=== PATIENT | female | born 1960 | race Caucasian/White ===

== ENCOUNTER 2019-01-08 14:15 | Inpatient (IN) | payer MEDICARE, MEDICAID ==
[~2019-01-08] VITALS: Ht 171.4 cm; Wt 104.3 kg
[~2019-01-08 14:15] MED LIST: CIPROFLOXACIN250 MG PO; COPAXONE20 MG/1 ML SUBQ; DOCUSATE SODIU100 MG ORAL; ESCITALOPRAM OX20 MG ORAL; HEPARIN SO5000 UNIT2 SUBQ; LEXAPRO10 MG ORAL; LEXAPRO20 MG ORAL; LIDODERM700 M1 TOPIC; MIRTAZAPINE15 MG ORAL; NORCO 5-325 TA1 EACH ORAL; PERCOCET 10-321 EACH ORAL; PERCOCET 5-3251 EACH ORAL; XANAX0.25 MG ORAL; ZOLPIDEM TARTRAT5 MG ORAL
--- NOTE | 2019-01-08 14:26 | Emergency Room Report ---
History of Present Illness General Source: Patient, EMS Present Illness HPI EMS was called by the records specialist because of increased weakness. The patient has a history of multiple sclerosis and is wheelchair bound. However the patient has increased weakness today. She denies any symptoms at this time. She does note that she is weak on the right-hand side but claims that this is long- standing. She denies headache or chest pain. There is no fever chills nausea vomiting diarrhea dysuria or trauma. Patient last admitted September 2016. D/C dx: 1. Multiple sclerosis with mild right hemiparesis, representing exacerbation of demyelinating process. 2. Status post mechanical fall with sacral fracture. 3. Depression. 4. Osteoporosis. 5. Degenerative joint disease. Allergies: Coded Allergies: No Known Allergies (Unverified , 05/02/14) Patient History Past Medical History: see triage record, old chart reviewed Social History: Denies: smoking - former Social History Narrative SNF Reviewed Nursing Documentation: PMH: Agreed; PSxH: Agreed Nursing Documentation-PMH Hx Cardiac Problems: No - multiple sclerosis Hx Cancer: No Hx Gastrointestinal Problems: No Hx Neurological Problems: Yes Hx Cerebrovascular Accident: No Hx Transient Ischemic Attacks: No Hx Dementia: No Hx Alzheimer's Disease: No Hx Parkinson's Disease: No Hx Meningitis: No Hx Encephalitis: No Hx Seizures: No Hx Epilepsy: No Hx Multiple Sclerosis: Yes Hx Cerebral Palsy: No Hx Amyotrophic Lat Sclerosis: Yes Hx Guillian-[place] Syndrome: No Hx Paralysis: No Hx Peripheral Neuropathy: No Hx Spinal Cord Injury: No Hx Head Trauma: No Hx Traumatic Brain Injury: No Hx Memory Loss: No Hx Concentration Difficulty: Yes Hx Speech Problem: No Hx Tremors: No Hx Vertigo: No Hx Dizziness: Yes Hx Syncope: No Hx Headaches: No Hx Aphasia: No Hx Dysphasia: No Hx Numbness: No Hx Weakness: No Hx Fatigue: No Hx Neurologic Surgery: No Hx Brain Shunt: No Review of Systems All Other Systems: negative except mentioned in HPI Physical Exam Vital Signs Date Time Temp Pulse Resp B/P (MAP) Pulse Ox O2 Delivery O2 Flow Rate FiO2 01/08/19 14:26 98.1 86 18 133/80 98 Room Air Sp02 EP Interpretation: reviewed, normal General Appearance: no apparent distress, Chronically Ill Head: normocephalic Eyes: bilateral eye normal inspection, bilateral eye PERRL ENT: moist mucus membranes Neck: supple Respiratory: lungs clear, normal breath sounds Cardiovascular #1: regular rate, rhythm Cardiovascular #2: 2+ radial (R) Gastrointestinal: normal inspection, normal bowel sounds, non tender, no mass, non-distended Musculoskeletal: back normal, normal range of motion Neurologic: DTRs symmetric - hyperreflexic, sensory intact, motor weakness - R sided > L, oriented - X2 Psychiatric: depressed affect Skin: normal inspection, warm/dry Medical Decision Making Diagnostic Impression: Primary Impression: Right sided weakness Additional Impressions: Multiple sclerosis Depression Qualified Codes: F32.9 - Major depressive disorder, single episode, unspecified ER Course Patient presents with increased weakness with history of multiple sclerosis. Differential includes stroke, acute myocardial infarction, exacerbation of multiple sclerosis, electrolyte imbalance, occult infection, depression amongst others. Patient will be evaluated with EKG, CT the head, chest x-ray and labs. The patient will receive gentle IV hydration. The patient is placed on a mortgage loan coordinator. EKG no injury. CXR no infiltrate. CT head no infarct. Labs unremarkable. Discussed with Dr. Lazo who requests admission to hospital and requests Dr. Smith as neurologist.. Discussed with Dr. Smith who will consult. Admit telemetry.Dr. Lyle. Laboratory Tests Test 01/08/19 14:42 01/08/19 15:40 White Blood Count 7.8 K/UL (4.8-10.8) Red Blood Count 5.14 M/UL (4.20-5.40) Hemoglobin 15.6 G/DL (12.0-16.0) Hematocrit 46.4 % (37.0-47.0) Mean Corpuscular Volume 90 FL (80-99) Mean Corpuscular Hemoglobin 30.4 PG (27.0-31.0) Mean Corpuscular Hemoglobin Concent 33.6 G/DL (32.0-36.0) Red Cell Distribution Width 12.0 % (11.6-14.8) Platelet Count 338 K/UL (150-450) Mean Platelet Volume 6.9 FL (6.5-10.1) Neutrophils (%) (Auto) 53.4 % (45.0-75.0) Lymphocytes (%) (Auto) 38.4 % (20.0-45.0) Monocytes (%) (Auto) 5.9 % (1.0-10.0) Eosinophils (%) (Auto) 1.8 % (0.0-3.0) Basophils (%) (Auto) 0.5 % (0.0-2.0) Prothrombin Time 10.6 SEC (9.30-11.50) Prothrombin Time INR 1.0 (0.9-1.1) PTT 28 SEC (23-33) Sodium Level 142 MMOL/L (136-145) Potassium Level 3.4 MMOL/L (3.5-5.1) L Chloride Level 103 MMOL/L (98-107) Carbon Dioxide Level 27 MMOL/L (21-32) Anion Gap 12 mmol/L (5-15) Blood Urea Nitrogen 16 mg/dL (7-18) Creatinine 0.9 MG/DL (0.55-1.30) Estimate Glomerular Filtration Rate > 60 mL/min (>60) Glucose Level 80 MG/DL (74-106) Calcium Level 9.7 MG/DL (8.5-10.1) Total Bilirubin 0.4 MG/DL (0.2-1.0) Aspartate Amino Transferase (AST) 22 U/L (15-37) Alanine Aminotransferase (ALT) 39 U/L (12-78) Alkaline Phosphatase 92 U/L (46-116) Total Creatine Kinase 66 U/L (26-308) Troponin I 0.000 ng/mL (0.000-0.056) Pro-B-Type Natriuretic Peptide 39 pg/mL (0-125) Total Protein 8.5 G/DL (6.4-8.2) H Albumin 4.3 G/DL (3.4-5.0) Globulin 4.2 g/dL Albumin/Globulin Ratio 1.0 (1.0-2.7) Urine Color Pale yellow Urine Appearance Clear Urine pH 6 (4.5-8.0) Urine Specific [place] 1.005 (1.005-1.035) Urine Protein Negative (NEGATIVE) Urine Glucose (UA) Negative (NEGATIVE) Urine Ketones Negative (NEGATIVE) Urine Blood 1+ (NEGATIVE) H Urine Nitrite Negative (NEGATIVE) Urine Bilirubin Negative (NEGATIVE) Urine Urobilinogen Normal MG/DL (0.0-1.0) Urine Leukocyte Esterase Negative (NEGATIVE) Urine RBC 2-4 /HPF (0 - 2) H Urine WBC 0 /HPF (0 - 2) Urine Squamous Epithelial Cells Few /LPF (NONE/OCC) Urine Bacteria Moderate /HPF (NONE) H Urine Opiates Screen Negative (NEGATIVE) Urine Barbiturates Screen Negative (NEGATIVE) Phencyclidine (PCP) Screen Negative (NEGATIVE) Urine Amphetamines Screen Negative (NEGATIVE) Urine Benzodiazepines Screen Negative (NEGATIVE) Urine Cocaine Screen Negative (NEGATIVE) Urine Marijuana (THC) Screen Negative (NEGATIVE) EKG Diagnostic Results Rate: normal Rhythm: NSR ST Segments: no acute changes - low voltage rate 64 Rhythm Strip Diag. Results EP Interpretation: yes Rhythm: NSR, no PVC's, no ectopy Chest X-Ray Diagnostic Results Chest X-Ray Diagnostic Results : Chest X-Ray Ordered: Yes # of Views/Limited/Complete: 1 View Indication: Other EP Interpretation: Yes Interpretation: no consolidation, no effusion, no pneumothorax, other - old rib fractures Impression: Other Electronically Signed by: Electronically signed by Severiano Lees MD CT/MRI/US Diagnostic Results CT/MRI/US Diagnostic Results : Imaging Test Ordered: head Impression no bleed or mass Status: improved Disposition: ADMITTED INPATIENT Condition: Serious Severiano Lees MD Jan 08, 2019 14:26
--- NOTE | 2019-01-08 14:36 | NUR ---
ED Nurse Note: patient brought in from home c/o generalized weakness, increased weakness noticed by her caregiver at home starting today patient is alert and awake x3, wheechair bound
[2019-01-08 14:52] LABS: BASOPHILS % (AUTO) 0.5 % (0.0-2.0); EOSINOPHILS % (AUTO) 1.8 % (0.0-3.0); HEMATOCRIT 46.4 % (37.0-47.0); HEMOGLOBIN 15.6 G/DL (12.0-16.0); LYMPHOCYTES % (AUTO) 38.4 % (20.0-45.0); MEAN CORPUSCULAR VOLUME 90 FL (80-99); MONOCYTES % (AUTO) 5.9 % (1.0-10.0); NEUTROPHILS % (AUTO) 53.4 % (45.0-75.0); PLATELET COUNT 338 K/UL (150-450); RED BLOOD COUNT 5.14 M/UL (4.20-5.40); WHITE BLOOD COUNT 7.8 K/UL (4.8-10.8)
[2019-01-08 15:04] LABS: ANION GAP 12 mmol/L (5-15); BLOOD UREA NITROGEN 16 mg/dL (7-18); CALCIUM 9.7 MG/DL (8.5-10.1); CARBON DIOXIDE 27 MMOL/L (21-32); CHLORIDE 103 MMOL/L (98-107); CREATININE 0.9 MG/DL (0.55-1.30); POTASSIUM 3.4 MMOL/L (3.5-5.1); SODIUM 142 MMOL/L (136-145)
[2019-01-08 15:15] LABS: ALANINE AMINOTRANSFERASE 39 U/L (12-78); ALBUMIN 4.3 G/DL (3.4-5.0); ALKALINE PHOSPHATASE 92 U/L (46-116); ASPARTATE AMINO TRANSFERASE 22 U/L (15-37); BILIRUBIN,TOTAL 0.4 MG/DL (0.2-1.0); CREATINE KINASE 66 U/L (26-308)
--- NOTE | 2019-01-08 15:30 | NUR ---
NURSE NOTES: Received report from Julia. pt is in stable condition. Heart monitor attached to the patient. Belongings list signed and in chart. Pt is alert and oriented X4. Bed is in lowest position, side rails up X2, call light within reach. Will continue to monitor.
--- NOTE | 2019-01-08 16:03 | Diagnostic Imaging Report ---
Indications: Dizziness Technique: Spiral acquisitions obtained through the brain. Angled axial and coronal 5 x 5 mm slices were reconstructed. Total dose length product 1407.76 mGycm. CTDI vol(s) 70.38 mGy. Dose reduction achieved using automated exposure control Comparison: MRI brain dated 10/10/2016. No comparison CTs Findings: There is age-related enlargement of the ventricles and extra axial CSF spaces. There is extensive periventricular deep white matter low-attenuation, appearance and distribution similar to the white matter abnormalities seen on prior MRI. No acute intracranial hemorrhage nor edema. No mass effect nor midline shift. Negative for acute intracranial bleed or mass effect multiple foci of decreased attenuation are seen in the periventricular deep white matter. Previously demonstrated left basal ganglia signal abnormality is much less evident than on the prior MRI. The calvarium is intact. The sinuses are clear. The mastoids are clear Impression: Cerebral volume loss, advanced for age Multiple areas of deep white matter hypoattenuation, corresponding to abnormalities described on prior MRI, then thought to be related to clinical history of multiple sclerosis Negative for acute intracranial bleed or mass effect The CT scanner at [facility] is accredited by the [employer] and the scans are performed using protocols designed to limit radiation exposure to as low as reasonably achievable to attain images of sufficient resolution adequate for diagnostic evaluation.
[2019-01-08 16:07] LABS: APPEARANCE,URINE CLEAR; BILIRUBIN, URINE NEGATIVE (NEGATIVE); COLOR,URINE PALE YELLOW; GLUCOSE, URINE (UA) NEGATIVE (NEGATIVE); KETONES,URINE NEGATIVE (NEGATIVE); LEUKOCYTE ESTERASE ,URINE NEGATIVE (NEGATIVE); NITRITE,URINE NEGATIVE (NEGATIVE); PH,URINE 6 (4.5-8.0); PROTEIN,URINE NEGATIVE (NEGATIVE); UROBILINOGEN,URINE NORMAL MG/DL (0.0-1.0)
[2019-01-08] MEDS: Sodium Chloride 550 ML IV SCH ×2 (16:30→18:10)
--- NOTE | 2019-01-08 16:34 | Diagnostic Imaging Report ---
Indication: Shortness of breath Technique: One view of the chest Comparison: 10/08/2016 Findings: Inspiration is suboptimal. The heart is apparently enlarged, although this is probably in part artifact of suboptimal inspiration. Old healed right rib fracture deformity are again noted. The lungs and pleural spaces are grossly clear. Impression: Hypoventilatory exam Equivocal cardiomegaly, likely artifact of the above No definite acute process
[2019-01-08 17:10] VITALS: BP 128/72
--- NOTE | 2019-01-08 17:14 | NUR ---
ED Nurse Note: report given to Lyudmila EUBANKS at 2 E
[2019-01-08 18:33] VITALS: BP 148/89
[2019-01-08] MEDS ORDERED: Dextrose 50% 25ml Syringe IV PRN (18:45)
[2019-01-08] MEDS ORDERED: LORazepam Inj 2mg/ml 1ml IV PRN (18:45)
[2019-01-08] MEDS ORDERED: Miralax 17gm pkt ORAL PRN (18:45)
[2019-01-08] MEDS ORDERED: Mylanta II UD 30ml ORAL PRN (18:45)
[2019-01-08] MEDS ORDERED: Morphine Sulfate 2mg/ml Inj IVP PRN (18:45)
[2019-01-08] MEDS ORDERED: Zolpidem 5mg tab ORAL PRN (18:45)
[2019-01-08] MEDS ORDERED: oxyCODONE HCL/Acetaminophen 5/325mg ORAL PRN (18:45)
--- NOTE | 2019-01-08 19:46 | NUR ---
HAND-OFF: Report given to Nguyen Campbell. Plan of care endorsed.
[2019-01-08 20:00] VITALS: BP 123/75
--- NOTE | 2019-01-08 20:40 | NUR ---
NURSE NOTES: received pt from Lyudmila, pt in bed with no s/s of acute distress. bed at the lowest position, bed rail upx3, call aid within reach. will continue to monitor.
[2019-01-09] VITALS: BP 145/77
--- NOTE | 2019-01-09 01:43 | NUR ---
NURSE NOTES: pt in bed sleeping no acute distress. will continue rounds hourly to monitor pt.
--- NOTE | 2019-01-09 01:45 | Consultation ---
DATE OF CONSULTATION: 01/08/2019 NEUROLOGIC CONSULTATION CONSULTING PHYSICIAN: Wilmer Smith M.D. HISTORY OF PRESENT ILLNESS: This is a 58-year-old right-handed white woman with multiple sclerosis for many years, essentially wheelchair bound, admitted with a chief complaint of nearly falling out of the wheelchair today. I have seen this patient several times. She is on Copaxone 20 mg every other day. Recently, she had an MRI scan of her brain showing a new inflammatory lesion in the right splenium of the corpus callosum with enhancement. There are other multiple abnormalities consistent with a diagnosis of multiple sclerosis. The patient denies any new weakness today. She said this has happened before several times. She actually did not fall out of the wheelchair. She denies any new numbness or tingling or sensory loss. She also denies any new diplopia, dysarthria, and dysphagia, although she has always had a effortful speech. She denies any tremors, shakes, or incontinence. There is no lhermite's phenomenon. There are no new tremors or shakes. She her head and she is painless. There is no new fever or chills. She has been eating well. She was brought to the emergency room. The chart is not in the computer yet. PHYSICAL EXAMINATION: VITAL SIGNS: Not obtainable except the respiratory rate is 16, the pulse is about 60, and blood pressure not done. HEENT: Examination of the head, ears, eyes, nose, mouth, and throat is intact. NECK: Supple. Carotids are +1. There were no bruits auscultated. LUNGS: Clear to auscultation. CARDIOVASCULAR: jvp were flat. The heart sounds were distant. There are no obvious murmurs, rubs, or clicks. ABDOMEN: Very obese. Bowel sounds intact. There is no tenderness, masses, or organomegaly appreciated. BACK: There is no tenderness to percussion. EXTREMITIES: There is no edema or erythema. MENTAL STATUS: Her affect is appropriate to her mood. Memory, immediate recall 3/3 objects, past recall normal, and recent recalls 1/3 objects at 5 minutes. Intellect, concrete orientation, she believes 01/07/2019. She knows she is at [facility]. She is oriented to person. Language function, the patient's spoken speech was mildly spastic. She did spell world backwards, but transposed o and r. She could repeat her comprehension was good. CRANIAL NERVE EXAMINATION: CRANIAL NERVE II: Visual hernadez are intact to confrontation. Fundi were not visualized. CRANIAL NERVES III, IV, AND : She had a right internuclear ophthalmoplegia. Her left horizontal gaze was near normal. She decreased upgaze downgaze and is intact. There were no complaints of diplopia. CRANIAL NERVE V: Facial and corneal sensation were intact to fine touch. CRANIAL NERVE VII: Facial strength was 5/5. CRANIAL NERVE VIII: Auditory acuity was intact bilaterally to whisper. CRANIAL NERVES IX AND X: Gag is decreased bilaterally. CRANIAL NERVE XI: Sternocleidomastoid strength is 5/5. CRANIAL NERVE XII: Tongue protrudes in the midline without fasciculations or atrophy. MUSCULOSKELETAL: Muscle bulk is symmetrical bilaterally. Tone is normal to decrease on the right and normal on the left. Strength is 5/5 in the left upper and left lower extremities. the right upper extremity strength is nearly 5/5 and the right lower extremity strength is about 3 to 3+/5. Reflexes were +2 in the right upper extremity, +1 in the left upper extremity, +1 at the right knee, trace on the left knee, and 0 at the ankles with upgoing toes and testing Babinski response. COORDINATION: [id number]-[id number] revealed dysmetria and tremor on the left and mild tremor on the right. Ekyv-bl-[id number] testing was near normal using the right leg and it could not be done using the left leg. GAIT AND STATION: She is wheelchair bound. SENSORY: Proprioception is decreased in the right foot to the ankle that could be normal on the left side. Proprioception is normal in the fingers. Pinprick and fine touch were normal. IMPRESSION AND PLAN: 1. The patient has relapsing and remitting multiple sclerosis. She is supposed to see Dr. aBrton at [facility] to get Tysabri and monoclonal antibody for the inflammatory phase of multiple sclerosis. Right now, I do not see that she has any new abnormalities and in fact, we can discharge her tomorrow morning. She took her Copaxone yesterday that she can take it in the morning at home. I will speak to you about this case. 2. We can discharge her in the morning as long as there are no new symptoms. Wilmer Smith MD DR: SARAH JOB#: [id number] CC: MING
[2019-01-09 04:00] VITALS: BP 115/69
--- NOTE | 2019-01-09 07:35 | NUR ---
HAND-OFF: Report given to Oj EUBANKS. pt in stable condition, all needs met during shift.
--- NOTE | 2019-01-09 07:35 | NUR ---
NURSE NOTES: Received patient from RAIMUNDO Campbell in bed, denies any pain, no s/s of acute distress noted. IV is intact and patent saline locked. Bed is in lowest position, brakes engaged for safety. Call light is within reach. Will continue with the plan of care.
[2019-01-09 07:55] LABS: BASOPHILS % (AUTO) 0.8 % (0.0-2.0); HEMATOCRIT 42.1 % (37.0-47.0); HEMOGLOBIN 14.1 G/DL (12.0-16.0); LYMPHOCYTES % (AUTO) 40.8 % (20.0-45.0); MEAN CORPUSCULAR VOLUME 90 FL (80-99); MONOCYTES % (AUTO) 7.8 % (1.0-10.0); NEUTROPHILS % (AUTO) 48.7 % (45.0-75.0); PLATELET COUNT 291 K/UL (150-450); RED BLOOD COUNT 4.68 M/UL (4.20-5.40); RED CELL DISTRIBUTION WIDTH 12.1 % (11.6-14.8); WHITE BLOOD COUNT 6.4 K/UL (4.8-10.8)
[2019-01-09 08:00] VITALS: BP 120/73
[2019-01-09 08:32] LABS: ALANINE AMINOTRANSFERASE 32 U/L (12-78); ALBUMIN 3.6 G/DL (3.4-5.0); ALKALINE PHOSPHATASE 82 U/L (46-116); ANION GAP 9 mmol/L (5-15); ASPARTATE AMINO TRANSFERASE 17 U/L (15-37); BILIRUBIN,TOTAL 0.4 MG/DL (0.2-1.0); BLOOD UREA NITROGEN 16 mg/dL (7-18); CALCIUM 9.2 MG/DL (8.5-10.1); CARBON DIOXIDE 28 MMOL/L (21-32); CHLORIDE 106 MMOL/L (98-107); CHOLESTEROL 279 MG/DL (< 200); CREATININE 0.8 MG/DL (0.55-1.30); HDL CHOLESTEROL 38 MG/DL (40-60); POTASSIUM 3.9 MMOL/L (3.5-5.1); SODIUM 143 MMOL/L (136-145); TRIGLYCERIDES 163 MG/DL (30-150)
[2019-01-09] MEDS: ALPRAZolam 0.25mg tab ORAL SCH ×2 (09:09→12:52)
[2019-01-09 12:00] VITALS: BP 111/70
--- NOTE | 2019-01-09 12:27 | History and Physical ---
History of Present Illness General Date patient seen: Jan 09, 2019 Reason for Hospitalization: Generalized Weakness Present Illness HPI 58 year old female with hx of MS presented to ER with increasing weakness. Pt is admitted for possible exacerbation of underlying MS. Pt is bed bound, has 24 hour care . She can speak slowly and eat without any problem. Allergies: Coded Allergies: No Known Allergies (Unverified , 05/02/14) Medication History Scheduled Alprazolam* (Xanax*), 0.25 MG ORAL THREE TIMES A DAY, (Reported) Ciprofloxacin* (Ciprofloxacin*), 500 MG PO Q12HR, (Reported) Docusate Sodium* (Docusate Sodium*), 100 MG ORAL THREE TIMES A DAY, (Reported) Escitalopram Oxalate (Escitalopram Oxalate*), 20 MG ORAL DAILY, (Reported) Glatiramer Acetate (Copaxone), 20 MG SUBQ DAILY, (Reported) Heparin Sod (Porcine) (Heparin Sodium*), 5,000 UNITS SUBQ EVERY 12 HOURS, ( Reported) Lidocaine (Lidoderm), 1 PATCH TOPIC DAILY, (Reported) Mirtazapine* (Remeron*), 15 MG ORAL BEDTIME, (Reported) Scheduled PRN Oxycodone Hcl/Acetaminophen 10-325 Mg Tablet (Percocet 10-325 Mg Tablet*), 1 TAB ORAL Q4H PRN for Severe Pain (Pain Scale 7-10), (Reported) Oxycodone/Acetaminophen 5-325* (Percocet 5-325 Mg Tablet*), 1 TAB ORAL Q4H PRN for Moderate Pain (Pain Scale 4-6), (Reported) Zolpidem Tartrate* (Zolpidem Tartrate*), 5 MG ORAL BEDTIME PRN for Insomnia, ( Reported) Patient History Healthcare decision maker N Resuscitation status Full Code Advanced Directive on File Past Medical/Surgical History Past Medical/Surgical History: (1) Multiple sclerosis (2) Depression Review of Systems Constitutional: Reports: no symptoms All Other Systems: negative except mentioned in HPI Physical Exam General Appearance: WD/WN Lines, tubes and drains: peripheral HEENT: normocephalic, atraumatic Neck: non-tender, normal alignment Respiratory/Chest: chest wall non-tender, lungs clear Cardiovascular/Chest: normal peripheral pulses Abdomen: normal bowel sounds Genitourinary/Rectal: normal genital exam Extremities: normal range of motion Neurologic: business line manager II-XII grossly normal Last 24 Hour Vital Signs Date Time Temp Pulse Resp B/P (MAP) Pulse Ox O2 Delivery O2 Flow Rate FiO2 01/09/19 09:00 Room Air 01/09/19 08:00 77 01/09/19 08:00 98.4 77 18 120/73 (89) 99 01/09/19 04:00 60 01/09/19 04:00 97.7 75 18 115/69 (84) 98 01/09/19 00:00 74 01/09/19 00:00 97.6 72 18 145/77 (99) 95 01/08/19 21:00 Room Air 01/08/19 20:00 98.0 60 17 123/75 (91) 95 01/08/19 20:00 57 01/08/19 19:12 98.3 16 148/89 99 Room Air 01/08/19 18:33 98.3 16 148/89 (108) 99 01/08/19 17:44 Room Air 01/08/19 17:10 86 18 Room Air 01/08/19 17:10 98.1 82 17 128/72 98 Room Air 01/08/19 14:26 98.1 86 18 133/80 98 Room Air Intake and Output 01/08/19 01/09/19 19:00 07:00 Output Total 450 ml Balance -450 ml Output Urine Total 450 ml # Voids 1 # Bowel Movements 1 Laboratory Tests Test 01/08/19 14:42 01/08/19 15:40 01/09/19 07:18 White Blood Count 7.8 K/UL (4.8-10.8) 6.4 K/UL (4.8-10.8) Red Blood Count 5.14 M/UL (4.20-5.40) 4.68 M/UL (4.20-5.40) Hemoglobin 15.6 G/DL (12.0-16.0) 14.1 G/DL (12.0-16.0) Hematocrit 46.4 % (37.0-47.0) 42.1 % (37.0-47.0) Mean Corpuscular Volume 90 FL (80-99) 90 FL (80-99) Mean Corpuscular Hemoglobin 30.4 PG (27.0-31.0) 30.2 PG (27.0-31.0) Mean Corpuscular Hemoglobin Concent 33.6 G/DL (32.0-36.0) 33.5 G/DL (32.0-36.0) Red Cell Distribution Width 12.0 % (11.6-14.8) 12.1 % (11.6-14.8) Platelet Count 338 K/UL (150-450) 291 K/UL (150-450) Mean Platelet Volume 6.9 FL (6.5-10.1) 7.0 FL (6.5-10.1) Neutrophils (%) (Auto) 53.4 % (45.0-75.0) 48.7 % (45.0-75.0) Lymphocytes (%) (Auto) 38.4 % (20.0-45.0) 40.8 % (20.0-45.0) Monocytes (%) (Auto) 5.9 % (1.0-10.0) 7.8 % (1.0-10.0) Eosinophils (%) (Auto) 1.8 % (0.0-3.0) 2.0 % (0.0-3.0) Basophils (%) (Auto) 0.5 % (0.0-2.0) 0.8 % (0.0-2.0) Prothrombin Time 10.6 SEC (9.30-11.50) Prothromb Time International Ratio 1.0 (0.9-1.1) Activated Partial Thromboplast Time 28 SEC (23-33) Sodium Level 142 MMOL/L (136-145) 143 MMOL/L (136-145) Potassium Level 3.4 MMOL/L (3.5-5.1) L 3.9 MMOL/L (3.5-5.1) Chloride Level 103 MMOL/L (98-107) 106 MMOL/L (98-107) Carbon Dioxide Level 27 MMOL/L (21-32) 28 MMOL/L (21-32) Anion Gap 12 mmol/L (5-15) 9 mmol/L (5-15) Blood Urea Nitrogen 16 mg/dL (7-18) 16 mg/dL (7-18) Creatinine 0.9 MG/DL (0.55-1.30) 0.8 MG/DL (0.55-1.30) Estimat Glomerular Filtration Rate > 60 mL/min (>60) > 60 mL/min (>60) Glucose Level 80 MG/DL (74-106) 92 MG/DL (74-106) Calcium Level 9.7 MG/DL (8.5-10.1) 9.2 MG/DL (8.5-10.1) Total Bilirubin 0.4 MG/DL (0.2-1.0) 0.4 MG/DL (0.2-1.0) Aspartate Amino Transf (AST/SGOT) 22 U/L (15-37) 17 U/L (15-37) Alanine Aminotransferase (ALT/SGPT) 39 U/L (12-78) 32 U/L (12-78) Alkaline Phosphatase 92 U/L (46-116) 82 U/L (46-116) Total Creatine Kinase 66 U/L (26-308) Troponin I 0.000 ng/mL (0.000-0.056) Pro-B-Type Natriuretic Peptide 39 pg/mL (0-125) Total Protein 8.5 G/DL (6.4-8.2) H 7.2 G/DL (6.4-8.2) Albumin 4.3 G/DL (3.4-5.0) 3.6 G/DL (3.4-5.0) Globulin 4.2 g/dL 3.6 g/dL Albumin/Globulin Ratio 1.0 (1.0-2.7) 1.0 (1.0-2.7) Urine Color Pale yellow Urine Appearance Clear Urine pH 6 (4.5-8.0) Urine Specific [place] 1.005 (1.005-1.035) Urine Protein Negative (NEGATIVE) Urine Glucose (UA) Negative (NEGATIVE) Urine Ketones Negative (NEGATIVE) Urine Blood 1+ (NEGATIVE) H Urine Nitrite Negative (NEGATIVE) Urine Bilirubin Negative (NEGATIVE) Urine Urobilinogen Normal MG/DL (0.0-1.0) Urine Leukocyte Esterase Negative (NEGATIVE) Urine RBC 2-4 /HPF (0 - 2) H Urine WBC 0 /HPF (0 - 2) Urine Squamous Epithelial Cells Few /LPF (NONE/OCC) Urine Bacteria Moderate /HPF (NONE) H Urine Opiates Screen Negative (NEGATIVE) Urine Barbiturates Screen Negative (NEGATIVE) Phencyclidine (PCP) Screen Negative (NEGATIVE) Urine Amphetamines Screen Negative (NEGATIVE) Urine Benzodiazepines Screen Negative (NEGATIVE) Urine Cocaine Screen Negative (NEGATIVE) Urine Marijuana (THC) Screen Negative (NEGATIVE) Triglycerides Level 163 MG/DL (30-150) H Cholesterol Level 279 MG/DL (< 200) H LDL Cholesterol 204 mg/dL (<100) H HDL Cholesterol 38 MG/DL (40-60) L Cholesterol/HDL Ratio 7.3 (3.3-4.4) H Thyroid Stimulating Hormone (TSH) 1.434 uiU/mL (0.358-3.740) Microbiology Date/Time Source Procedure Growth Status 01/08/19 15:40 Urine,Clean Catch Urine Culture - Preliminary NO GROWTH Resulted Height (Feet): 5 Height (Inches): 7.50 Weight (Pounds): 230 Medications Current Medications Medications (Trade) Dose Ordered Sig/Kaitlin Route PRN Reason Start Time Stop Time Status Last Admin Dose Admin Acetaminophen (Tylenol) 650 mg Q4H PRN ORAL fever 01/08/19 18:45 02/07/19 18:44 Al Hydroxide/Mg Hydroxide (Mylanta II) 30 ml Q6H PRN ORAL dyspepsia 01/08/19 18:45 02/07/19 18:44 Alprazolam (Xanax) 0.25 mg THREE TIMES A DAY ORAL 01/09/19 09:00 01/16/19 08:59 01/09/19 09:09 Dextrose (Dextrose 50%) 25 ml Q30M PRN IV Hypoglycemia 01/08/19 18:45 02/07/19 18:36 Dextrose (Dextrose 50%) 50 ml Q30M PRN IV hypoglycemia 01/08/19 18:45 02/07/19 18:44 Lorazepam (Ativan 2mg/ml 1ml) 0.5 mg Q4H PRN IV For Anxiety 01/08/19 18:45 01/15/19 18:44 Mirtazapine (Remeron) 15 mg BEDTIME ORAL 01/08/19 21:00 02/07/19 20:59 01/08/19 20:44 Morphine Sulfate (Morphine Sulfate) 1 mg Q4H PRN IVP SEVERE PAIN 01/08/19 18:45 01/15/19 18:44 Ondansetron HCl (Zofran) 4 mg Q6H PRN IVP Nausea & Vomiting 01/08/19 18:45 02/07/19 18:44 Oxycodone/ Acetaminophen (Percocet 5-325) 1 tab Q4H PRN ORAL Moderate Pain (Pain Scale 4-6) 01/08/19 18:45 01/15/19 18:44 Polyethylene Glycol (Miralax) 17 gm HSPRN PRN ORAL Constipation 01/08/19 18:45 02/07/19 18:44 Zolpidem Tartrate (Ambien) 5 mg HSPRN PRN ORAL Insomnia 01/08/19 18:45 01/15/19 18:44 Assessment/Plan Problem List: (1) Multiple sclerosis exacerbation ICD Codes: G35 - Multiple sclerosis SNOMED: 491302363 (2) Depression ICD Codes: F32.9 - Depression SNOMED: 46115627 (3) Multiple sclerosis ICD Codes: G35 - Multiple sclerosis SNOMED: 77112379 Assessment/Plan Neurology saw the pt already and refer the pt to [facility] MS specialist pt /ot continue home meds symptomatic treatment Martha Lyle MD Jan 09, 2019 12:27
--- NOTE | 2019-01-09 13:09 | Consultation ---
History of Present Illness General Chief Complaint: Generalized Weakness Present Illness HPI 58-year-old woman with hx of mdd multiple sclerosis for many years, essentially wheelchair bound, admitted with a chief complaint of nearly falling out of the wheelchair. the pt stated that she is still depressed and cries frequently. the pt has anhedonia, anxiety, insomnia , low energy and poor concentration the pt denied si/hi no manic sxs/ Allergies: Coded Allergies: No Known Allergies (Unverified , 05/02/14) Medication History Scheduled Alprazolam* (Xanax*), 0.25 MG ORAL THREE TIMES A DAY, (Reported) Ciprofloxacin* (Ciprofloxacin*), 500 MG PO Q12HR, (Reported) Docusate Sodium* (Docusate Sodium*), 100 MG ORAL THREE TIMES A DAY, (Reported) Escitalopram Oxalate (Escitalopram Oxalate*), 20 MG ORAL DAILY, (Reported) Glatiramer Acetate (Copaxone), 20 MG SUBQ DAILY, (Reported) Heparin Sod (Porcine) (Heparin Sodium*), 5,000 UNITS SUBQ EVERY 12 HOURS, ( Reported) Lidocaine (Lidoderm), 1 PATCH TOPIC DAILY, (Reported) Mirtazapine* (Remeron*), 15 MG ORAL BEDTIME, (Reported) Scheduled PRN Oxycodone Hcl/Acetaminophen 10-325 Mg Tablet (Percocet 10-325 Mg Tablet*), 1 TAB ORAL Q4H PRN for Severe Pain (Pain Scale 7-10), (Reported) Oxycodone/Acetaminophen 5-325* (Percocet 5-325 Mg Tablet*), 1 TAB ORAL Q4H PRN for Moderate Pain (Pain Scale 4-6), (Reported) Zolpidem Tartrate* (Zolpidem Tartrate*), 5 MG ORAL BEDTIME PRN for Insomnia, ( Reported) Patient History Limited by: medical condition History Provided By: Patient, Medical Record, PMD Healthcare decision maker N Resuscitation status Full Code Advanced Directive on File Past Medical/Surgical History Past Medical/Surgical History: (1) Rib pain (2) Rib fracture (3) Acute chest wall pain (4) high ESR (5) SPINAL FRACTUIRE (6) SPINAL FRACTUIRE (7) Right sided weakness (8) Depression (9) Multiple sclerosis (10) Multiple sclerosis exacerbation Review of Systems Psychiatric: Reports: prior hx, anxiety, depressed feelings, emotional problems Physical Exam General Appearance: WD/WN, alert, overweight Neurologic: oriented x 3, responsive, depressed affect Last 24 Hour Vital Signs Date Time Temp Pulse Resp B/P (MAP) Pulse Ox O2 Delivery O2 Flow Rate FiO2 01/09/19 09:00 Room Air 01/09/19 08:00 77 01/09/19 08:00 98.4 77 18 120/73 (89) 99 01/09/19 04:00 60 01/09/19 04:00 97.7 75 18 115/69 (84) 98 01/09/19 00:00 74 01/09/19 00:00 97.6 72 18 145/77 (99) 95 01/08/19 21:00 Room Air 01/08/19 20:00 98.0 60 17 123/75 (91) 95 01/08/19 20:00 57 01/08/19 19:12 98.3 16 148/89 99 Room Air 01/08/19 18:33 98.3 16 148/89 (108) 99 01/08/19 17:44 Room Air 01/08/19 17:10 86 18 Room Air 01/08/19 17:10 98.1 82 17 128/72 98 Room Air 01/08/19 14:26 98.1 86 18 133/80 98 Room Air Intake and Output 01/08/19 01/09/19 19:00 07:00 Output Total 450 ml Balance -450 ml Output Urine Total 450 ml # Voids 1 # Bowel Movements 1 Laboratory Tests Test 01/08/19 14:42 01/08/19 15:40 01/09/19 07:18 White Blood Count 7.8 K/UL (4.8-10.8) 6.4 K/UL (4.8-10.8) Red Blood Count 5.14 M/UL (4.20-5.40) 4.68 M/UL (4.20-5.40) Hemoglobin 15.6 G/DL (12.0-16.0) 14.1 G/DL (12.0-16.0) Hematocrit 46.4 % (37.0-47.0) 42.1 % (37.0-47.0) Mean Corpuscular Volume 90 FL (80-99) 90 FL (80-99) Mean Corpuscular Hemoglobin 30.4 PG (27.0-31.0) 30.2 PG (27.0-31.0) Mean Corpuscular Hemoglobin Concent 33.6 G/DL (32.0-36.0) 33.5 G/DL (32.0-36.0) Red Cell Distribution Width 12.0 % (11.6-14.8) 12.1 % (11.6-14.8) Platelet Count 338 K/UL (150-450) 291 K/UL (150-450) Mean Platelet Volume 6.9 FL (6.5-10.1) 7.0 FL (6.5-10.1) Neutrophils (%) (Auto) 53.4 % (45.0-75.0) 48.7 % (45.0-75.0) Lymphocytes (%) (Auto) 38.4 % (20.0-45.0) 40.8 % (20.0-45.0) Monocytes (%) (Auto) 5.9 % (1.0-10.0) 7.8 % (1.0-10.0) Eosinophils (%) (Auto) 1.8 % (0.0-3.0) 2.0 % (0.0-3.0) Basophils (%) (Auto) 0.5 % (0.0-2.0) 0.8 % (0.0-2.0) Prothrombin Time 10.6 SEC (9.30-11.50) Prothromb Time International Ratio 1.0 (0.9-1.1) Activated Partial Thromboplast Time 28 SEC (23-33) Sodium Level 142 MMOL/L (136-145) 143 MMOL/L (136-145) Potassium Level 3.4 MMOL/L (3.5-5.1) L 3.9 MMOL/L (3.5-5.1) Chloride Level 103 MMOL/L (98-107) 106 MMOL/L (98-107) Carbon Dioxide Level 27 MMOL/L (21-32) 28 MMOL/L (21-32) Anion Gap 12 mmol/L (5-15) 9 mmol/L (5-15) Blood Urea Nitrogen 16 mg/dL (7-18) 16 mg/dL (7-18) Creatinine 0.9 MG/DL (0.55-1.30) 0.8 MG/DL (0.55-1.30) Estimat Glomerular Filtration Rate > 60 mL/min (>60) > 60 mL/min (>60) Glucose Level 80 MG/DL (74-106) 92 MG/DL (74-106) Calcium Level 9.7 MG/DL (8.5-10.1) 9.2 MG/DL (8.5-10.1) Total Bilirubin 0.4 MG/DL (0.2-1.0) 0.4 MG/DL (0.2-1.0) Aspartate Amino Transf (AST/SGOT) 22 U/L (15-37) 17 U/L (15-37) Alanine Aminotransferase (ALT/SGPT) 39 U/L (12-78) 32 U/L (12-78) Alkaline Phosphatase 92 U/L (46-116) 82 U/L (46-116) Total Creatine Kinase 66 U/L (26-308) Troponin I 0.000 ng/mL (0.000-0.056) Pro-B-Type Natriuretic Peptide 39 pg/mL (0-125) Total Protein 8.5 G/DL (6.4-8.2) H 7.2 G/DL (6.4-8.2) Albumin 4.3 G/DL (3.4-5.0) 3.6 G/DL (3.4-5.0) Globulin 4.2 g/dL 3.6 g/dL Albumin/Globulin Ratio 1.0 (1.0-2.7) 1.0 (1.0-2.7) Urine Color Pale yellow Urine Appearance Clear Urine pH 6 (4.5-8.0) Urine Specific [place] 1.005 (1.005-1.035) Urine Protein Negative (NEGATIVE) Urine Glucose (UA) Negative (NEGATIVE) Urine Ketones Negative (NEGATIVE) Urine Blood 1+ (NEGATIVE) H Urine Nitrite Negative (NEGATIVE) Urine Bilirubin Negative (NEGATIVE) Urine Urobilinogen Normal MG/DL (0.0-1.0) Urine Leukocyte Esterase Negative (NEGATIVE) Urine RBC 2-4 /HPF (0 - 2) H Urine WBC 0 /HPF (0 - 2) Urine Squamous Epithelial Cells Few /LPF (NONE/OCC) Urine Bacteria Moderate /HPF (NONE) H Urine Opiates Screen Negative (NEGATIVE) Urine Barbiturates Screen Negative (NEGATIVE) Phencyclidine (PCP) Screen Negative (NEGATIVE) Urine Amphetamines Screen Negative (NEGATIVE) Urine Benzodiazepines Screen Negative (NEGATIVE) Urine Cocaine Screen Negative (NEGATIVE) Urine Marijuana (THC) Screen Negative (NEGATIVE) Triglycerides Level 163 MG/DL (30-150) H Cholesterol Level 279 MG/DL (< 200) H LDL Cholesterol 204 mg/dL (<100) H HDL Cholesterol 38 MG/DL (40-60) L Cholesterol/HDL Ratio 7.3 (3.3-4.4) H Thyroid Stimulating Hormone (TSH) 1.434 uiU/mL (0.358-3.740) Microbiology Date/Time Source Procedure Growth Status 01/08/19 15:40 Urine,Clean Catch Urine Culture - Preliminary NO GROWTH Resulted Height (Feet): 5 Height (Inches): 7.50 Weight (Pounds): 230 Medications Current Medications Medications (Trade) Dose Ordered Sig/Kaitlin Route PRN Reason Start Time Stop Time Status Last Admin Dose Admin Acetaminophen (Tylenol) 650 mg Q4H PRN ORAL fever 01/08/19 18:45 02/07/19 18:44 Al Hydroxide/Mg Hydroxide (Mylanta II) 30 ml Q6H PRN ORAL dyspepsia 01/08/19 18:45 02/07/19 18:44 Alprazolam (Xanax) 0.25 mg THREE TIMES A DAY ORAL 01/09/19 09:00 01/16/19 08:59 01/09/19 12:52 Dextrose (Dextrose 50%) 25 ml Q30M PRN IV Hypoglycemia 01/08/19 18:45 02/07/19 18:36 Dextrose (Dextrose 50%) 50 ml Q30M PRN IV hypoglycemia 01/08/19 18:45 02/07/19 18:44 Lorazepam (Ativan 2mg/ml 1ml) 0.5 mg Q4H PRN IV For Anxiety 01/08/19 18:45 01/15/19 18:44 Mirtazapine (Remeron) 15 mg BEDTIME ORAL 01/08/19 21:00 02/07/19 20:59 01/08/19 20:44 Morphine Sulfate (Morphine Sulfate) 1 mg Q4H PRN IVP SEVERE PAIN 01/08/19 18:45 01/15/19 18:44 Ondansetron HCl (Zofran) 4 mg Q6H PRN IVP Nausea & Vomiting 01/08/19 18:45 02/07/19 18:44 Oxycodone/ Acetaminophen (Percocet 5-325) 1 tab Q4H PRN ORAL Moderate Pain (Pain Scale 4-6) 01/08/19 18:45 01/15/19 18:44 Polyethylene Glycol (Miralax) 17 gm HSPRN PRN ORAL Constipation 01/08/19 18:45 02/07/19 18:44 Zolpidem Tartrate (Ambien) 5 mg HSPRN PRN ORAL Insomnia 01/08/19 18:45 01/15/19 18:44 Assessment/Plan Problem List: (1) Depression ICD Codes: F32.9 - Depression SNOMED: [id number] Assessment/Plan Lexapro 20mg po qam Remeron 15mg po qhs provided abril/Joni Ahumada MD Jan 09, 2019 13:09
--- NOTE | 2019-01-09 13:43 | NUR ---
NURSE NOTES: set up ambulance for pt [id number] hrs, Dillan EUBANKS aware.
[2019-01-09 16:00] VITALS: BP 114/75
--- NOTE | 2019-01-09 16:59 | Cardiology Report ---
APPROVED REPORT EKG Measurement Heart [id number] Normal sinus rhythm Low voltage QRS Borderline ECG
--- NOTE | 2019-01-09 17:43 | NUR ---
NURSE NOTES: Patient is discharged home via ambulance. IV taken out, no bleeding, no infiltration or any discomfort noted, patient tolerated well. court monitor removed. ID band removed. All belongings accounted for, and with patient, patient and nurse signed for belongings. Patient is in stable condition.
--- NOTE | 2019-01-09 18:48 | NUR ---
CASE MANAGEMENT: REVIEW 58/F BIBA FROM HOME CC: GENERALIZED WEAKNESS SI: RIGHT SIDE WEAKNESS T 98.1 HR 86 RR 18 BP 133/80 SAT 98% ROOM AIR K 3.4 IS: NS IVF BOLUS X1 PATIENT ADMITTED TO TELEMETRY UNIT 01/08/2019 DCP: PATIENT IS FROM [facility]
--- NOTE | 2019-01-10 11:11 | Discharge Summary ---
Discharge Summary Discharge Summary _ DATE OF ADMISSION: 01/08/2019 DATE OF DISCHARGE: 01/09/2019 DISCHARGED BY: Dr. Martha Lyle CONSULTANTS: Dr. Joni Smith BRIEF HOSPITAL COURSE: Patient is a 58-year-old female with history of multiple sclerosis, presented to ED via EMS because of increased weakness. Coordinator Of Rehabilitation Services called EMS. Patient is a wheelchair-bound, however patient was noted to have increased weakness. Patient has weakness on the right side but has been long-standing. She denied any headache or chest pain. Denied any fever or chills. No nausea, vomiting or diarrhea. No dysuria or trauma. On evaluation at the ED, vital signs were stable. Blood work did not show any leukocytosis, hemoglobin and hematocrit were stable. Potassium was 3.4. Troponin was negative. Urinalysis was essentially unremarkable. Urine toxicology screen was negative. EKG showed normal sinus rhythm with low voltage , no acute changes. Chest x-ray showed no consolidation, no effusion, no pneumothorax. Head CT did not show any acute infarct. She was admitted for exacerbation of multiple sclerosis. Neurologist was consulted. Patient had been on Copaxone 20 mg every other day. She recently had an MRI of the brain that showed a new inflammatory lesion in the right splenium of the corpus callosum with enhancement. There were multiple abnormalities consistent with diagnosis of multiple sclerosis. Patient was supposed to see Dr. Barton at [facility] to get TYsabri and monoclonal antibody for the inflammatory phase of multiple sclerosis. She was continued on Copaxone. She was given PT OT. She was continued on Lexapro and Remeron for depression. There were no further change in her symptoms. She was eventually discharged home to follow-up with neurologist at [facility]. FINAL DIAGNOSES: Multiple sclerosis exacerbation Depression DISPOSITION: Patient was discharged home. DISCHARGE MEDICATIONS: Refer to Discharge Medication List. DISCHARGE INSTRUCTIONS: Follow-up with neurologist in a week. I have been assigned to complete a discharge summary on this account, I was not involved with the patient's management. Maryann Tinsley NP Jan 10, 2019 11:11
== END 2019-01-09 17:40 | disposition home or self-care (01) | DRG 60 ==
LOC: EDBD 14:15 → EDBEDREQ 14:37 → EMR 15:02 → 2E 15:18 → EDBEDREQ 16:51
DX: G35 Multiple sclerosis (principal); R53.1 Weakness; F32.9 Major depressive disorder, single episode, unspecified
CPT/HCPCS: 36415; 70450; 71045; 80053; 80061; 80307; 81003; 82550; 83880; 84443; 84484; 85025; 85610; 85730; 87086; 93005; 93970; 99285